=== PATIENT | male | born 1965 | race Caucasian/White ===

== ENCOUNTER 2021-10-25 03:09 | Emergency (ER) | payer SELFPAY ==
[2021-10-25] VITALS (13 sets, daily range): BP systolic 159–183; BP diastolic 95–137
[~2021-10-25] VITALS: Ht 190.5 cm; Wt 87.0 kg
[2021-10-25 03:46] LABS: HEMATOCRIT 38.4 % (39.0-50.0); HEMOGLOBIN 12.8 g/dl (14.0-18.0); MEAN CELL VOLUME 94.3 fL CALC (80.0-100.0); MEAN CORPUSCULAR HGB 31.4 pG CALC (26.0-32.0); MEAN CORPUSCULAR HGB CONC 33.3 g/dL CAL (32.0-36.0); NEUT# 5.23 thou/uL (1.82-7.42); RED BLOOD COUNT 4.07 mill/uL (4.70-6.10); RED CELL DISTRI WIDTH 13.7 % (11.5-15.5)
[2021-10-25 04:11] LABS: ALBUMIN 4.2 g/dL (3.2-5.0); ALKALINE PHOSPHATASE 66 u/l (38-126); ANION GAP 12 (6-22 (CALC)); BILIRUBIN, TOTAL 0.6 mg/dL (0.0-1.4); BUN 17 mg/dL (9-20); BUN/CREATININE RATIO 17 (12-20 (CALC)); CARBON DIOXIDE 23 mmol/l (22-30); CHLORIDE 108 mmol/l (95-108); CPK 1106 u/l (52-200); GFR > 60 ML/MIN (>=60 (CALC)); GFR FOR AFR.AMER. > 60 ML/MIN (>=60 (CALC)); MAGNESIUM 1.8 mg/dL (1.6-2.3); POTASSIUM 3.7 mmol/l (3.5-5.1); SGOT/AST 74 u/l (17-59); SODIUM 139 mmol/l (137-146); TOTAL PROTEIN 7.3 g/dL (6.3-8.2)
[2021-10-25] MEDS ORDERED: METOPROLOL TART50 MG PO (04:23)
[2021-10-25] MEDS ORDERED: SERTRALINE100 MG PO (04:23)
[2021-10-25 04:24] LABS: MYOGLOBIN 1420 ng/mL (0 - 121)
[2021-10-25] MEDS ORDERED: ALPRAZOLAM1 MG PO (04:24)
[2021-10-25] MEDS ORDERED: OMEPRAZOLE DR40 MG (04:25)
[2021-10-25] MEDS ORDERED: ZESTRIL5 M1 PO (04:26)
[2021-10-25] MEDS ORDERED: ALBUTEROL108 MCG/AC (04:27)
[2021-10-25] MEDS ORDERED: LYRICA150 MG PO (04:27)
[2021-10-25] MEDS ORDERED: MOTRIN800 MG PO (04:29)
[2021-10-25] MEDS ORDERED: TRIMETHOPRIM100 MG PO (04:29)
== END 2021-10-25 06:40 | disposition home or self-care (01) | DRG 999 ==
LOC: ED 03:09
PROVIDERS: Family Medicine
DX: T20.10XA Burn of first degree of head, face, and neck, unspecified site, initial encounter (principal); T31.30 Burns involving 30-39% of body surface with 0% to 9% third degree burns; M62.82 Rhabdomyolysis; T20.17XA Burn of first degree of neck, initial encounter; T21.11XA Burn of first degree of chest wall, initial encounter; T21.12XA Burn of first degree of abdominal wall, initial encounter; T22.132A Burn of first degree of left upper arm, initial encounter; T22.131A Burn of first degree of right upper arm, initial encounter; T24.112A Burn of first degree of left thigh, initial encounter; T24.111A Burn of first degree of right thigh, initial encounter; I10 Essential (primary) hypertension; J44.9 Chronic obstructive pulmonary disease, unspecified; F41.9 Anxiety disorder, unspecified; F32.A Depression, unspecified; F17.210 Nicotine dependence, cigarettes, uncomplicated; X00.0XXA Exposure to flames in uncontrolled fire in building or structure, initial encounter; Y92.028 Other place in mobile home as the place of occurrence of the external cause

== ENCOUNTER 2022-04-13 17:25 | Emergency (ER) | payer MEDICARE ==
[~2022-04-13] VITALS: Ht 190.5 cm; Wt 79.5 kg
[~2022-04-13 17:25] MED LIST: ALBUTEROL108 MCG/AC; ALPRAZOLAM1 MG PO; LYRICA150 MG PO; METOPROLOL TART50 MG PO; MOTRIN800 MG PO; OMEPRAZOLE DR40 MG; SERTRALINE100 MG PO; TRIMETHOPRIM100 MG PO; ZESTRIL5 M1 PO
[2022-04-13 18:19] LABS: HEMATOCRIT 39.7 % (39.0-50.0); HEMOGLOBIN 13.4 g/dl (14.0-18.0); IMMATURE GRANULOCYTES 0.2 % (0.0-5.0); MEAN CORPUSCULAR HGB 29.9 pG CALC (26.0-32.0); MEAN CORPUSCULAR HGB CONC 33.8 g/dL CAL (32.0-36.0); NEUT# 8.55 thou/uL (1.82-7.42); RED BLOOD COUNT 4.48 mill/uL (4.70-6.10); RED CELL DISTRI WIDTH 12.9 % (11.5-15.5)
[2022-04-13 18:20] LABS: MEAN CELL VOLUME 88.6 fL CALC (80.0-100.0)
[2022-04-13 18:29] LABS: ALBUMIN 4.3 g/dL (3.2-5.0); ANION GAP 15 (6-22 (CALC)); BUN 15 mg/dL (9-20); BUN/CREATININE RATIO 14 (12-20 (CALC)); CARBON DIOXIDE 25 mmol/l (22-30); CHLORIDE 100 mmol/l (95-108); GFR FOR AFR.AMER. > 60 ML/MIN (>=60 (CALC)); GFR OTHER RACES > 60 ML/MIN (>=60 (CALC)); POTASSIUM 4.3 mmol/l (3.5-5.1); SGOT/AST 127 u/l (17-59); SODIUM 135 mmol/l (137-146); TOTAL PROTEIN 8.1 g/dL (6.3-8.2)
[2022-04-13 18:30] LABS: ALKALINE PHOSPHATASE 139 u/l (38-126); BILIRUBIN, TOTAL 0.9 mg/dL (0.0-1.4)
[2022-04-13] MEDS ORDERED: ADVAIR DISK1 IN (19:46)
[2022-04-13] MEDS ORDERED: MUPIROCIN2 % EX ×2 (19:46→19:47)
[2022-04-13] MEDS ORDERED: VIBRAMYCIN100 M2 PO (19:46)
[2022-04-13] MEDS ORDERED: COMBIVENT RESPIMAT IN (19:46)
[2022-04-13 20:18] VITALS: BP 110/58
== END 2022-04-13 20:53 | disposition home or self-care (01) ==
LOC: ED 17:25
PROVIDERS: Nurse Practitioner
DX: L03.116 Cellulitis of left lower limb (principal); L03.115 Cellulitis of right lower limb; L03.114 Cellulitis of left upper limb; L03.113 Cellulitis of right upper limb; L01.00 Impetigo, unspecified; J44.9 Chronic obstructive pulmonary disease, unspecified; I10 Essential (primary) hypertension; F32.A Depression, unspecified; F41.9 Anxiety disorder, unspecified; F17.200 Nicotine dependence, unspecified, uncomplicated; B95.62 Methicillin resistant Staphylococcus aureus infection as the cause of diseases classified elsewhere

== ENCOUNTER 2022-11-17 16:48 | Emergency (ER) | payer MEDICARE ==
[~2022-11-17] VITALS: Ht 188 cm; Wt 77.0 kg
[~2022-11-17 16:48] MED LIST changes: +ADVAIR DISK1 IN; +COMBIVENT RESPIMAT IN; +MUPIROCIN2 % EX; +VIBRAMYCIN100 M2 PO
[2022-11-17 16:55] VITALS: BP 136/98
[2022-11-17 17:01] VITALS: BP 155/123
[2022-11-17] MEDS ORDERED: VIBRAMYCIN100 M2 PO (17:07)
[2022-11-17] MEDS ORDERED: PREDNISONE10 MG PO (17:07)
[2022-11-17 17:16] VITALS: BP 118/94
[2022-11-17 17:28] VITALS: BP 118/94
== END 2022-11-17 17:42 | disposition home or self-care (01) ==
LOC: ED 16:48
DX: L03.114 Cellulitis of left upper limb (principal); L03.113 Cellulitis of right upper limb; L03.116 Cellulitis of left lower limb; L03.115 Cellulitis of right lower limb; I10 Essential (primary) hypertension; J44.9 Chronic obstructive pulmonary disease, unspecified; F41.9 Anxiety disorder, unspecified; F32.A Depression, unspecified; F17.200 Nicotine dependence, unspecified, uncomplicated

== ENCOUNTER 2022-12-20 13:21 | Emergency (ER) | payer MEDICARE ==
[~2022-12-20] VITALS: Ht 188 cm; Wt 76.0 kg
[~2022-12-20 13:21] MED LIST changes: +PREDNISONE10 MG PO
[2022-12-20 13:31] VITALS: BP 159/118
[2022-12-20 13:46] VITALS: BP 159/105
[2022-12-20 14:00] VITALS: BP 151/108
[2022-12-20 14:15] VITALS: BP 140/102
[2022-12-20 14:24] VITALS: BP 140/102
== END 2022-12-20 14:32 | disposition home or self-care (01) ==
LOC: ED 13:21
PROC: 0HQ1XZZ Repair Face Skin, External Approach (ICD-10-PCS; principal; 2022-12-20)
DX: S01.111A Laceration without foreign body of right eyelid and periocular area, initial encounter (principal); I10 Essential (primary) hypertension; J44.9 Chronic obstructive pulmonary disease, unspecified; F41.9 Anxiety disorder, unspecified; F32.A Depression, unspecified; F17.200 Nicotine dependence, unspecified, uncomplicated; Y00.XXXA Assault by blunt object, initial encounter

== ENCOUNTER 2023-02-13 16:29 | Inpatient (IN) | payer MEDICARE ==
[~2023-02-13] VITALS: Ht 188 cm; Wt 72.4 kg
[2023-02-13] VITALS (11 sets, daily range): BP systolic 87–115; BP diastolic 58–75
[2023-02-13 17:17] LABS: BASO% 0.6 % (0-3); EOS% 4.3 % (0-8); HEMATOCRIT 43.1 % (39.0-50.0); HEMOGLOBIN 14.5 g/dl (14.0-18.0); IMMATURE GRANULOCYTES 0.1 % (0.0-5.0); LYMPH% 23.7 % (15-41); MEAN CELL VOLUME 88.7 fL CALC (80.0-100.0); MEAN CORPUSCULAR HGB 29.8 pG CALC (26.0-32.0); MEAN CORPUSCULAR HGB CONC 33.6 g/dL CAL (32.0-36.0); MONO% 8.4 % (2-13); NEUT# 4.34 thou/uL (1.82-7.42); NEUT% 62.9 % (42-76); RED BLOOD COUNT 4.86 mill/uL (4.70-6.10)
[2023-02-13 17:18] LABS: URINE BLOOD DIPSTICK Negative (NEGATIVE); URINE GLUCOSE - DIPSTICK Negative (NEGATIVE); URINE KETONE Negative (NEGATIVE); URINE LEUK ESTERASE Negative (NEGATIVE); URINE NITRITE - DIPSTICK Negative (Negative); URINE PH 5.5 (4.5-8.0); URINE PROTEIN - DIPSTICK 100 mg/dL (NEG-TRACE); URINE SPECIFIC GRAVITY >=1.030; URINE UROBILINOGEN - DIPSTICK 0.2 E.U./dL (0.2)
[2023-02-13 17:19] LABS: URINE COLOR Dark yellow
[2023-02-13] MEDS ORDERED: AMLODIPINE BESY10 MG PO (17:22)
[2023-02-13 17:29] LABS: ALBUMIN 4.7 g/dL (3.2-5.0); BILIRUBIN, TOTAL 0.7 mg/dL (0.2-1.3); POTASSIUM 4.7 mmol/l (3.5-5.1); TOTAL PROTEIN 8.9 g/dL (6.3-8.2)
[2023-02-13 17:30] LABS: CREATININE 3.1 mg/dL (0.7-1.3)
[2023-02-14] VITALS (7 sets, daily range): BP systolic 75–147; BP diastolic 38–87
[2023-02-14 06:06] LABS: MEAN CELL VOLUME 88.8 fL CALC (80.0-100.0); MEAN CORPUSCULAR HGB 30.5 pG CALC (26.0-32.0); MEAN CORPUSCULAR HGB CONC 34.4 g/dL CAL (32.0-36.0); RED CELL DISTRI WIDTH 13.1 % (11.5-15.5)
[2023-02-14 06:11] LABS: HEMATOCRIT 35.5 % (39.0-50.0); HEMOGLOBIN 12.2 g/dl (14.0-18.0)
[2023-02-14 06:25] LABS: CHOLESTEROL HDL RATIO 6.8 (<4.4 (CALC)); MAGNESIUM 1.9 mg/dL (1.6-2.3)
[2023-02-14 06:27] LABS: CREATININE 2.1 mg/dL (0.7-1.3); POTASSIUM 3.7 mmol/l (3.5-5.1)
[2023-02-15] VITALS: BP 140/85
[2023-02-15 04:40] VITALS: BP 148/94
[2023-02-15 05:25] LABS: HEMATOCRIT 32.9 % (39.0-50.0); HEMOGLOBIN 11.1 g/dl (14.0-18.0); MEAN CELL VOLUME 89.4 fL CALC (80.0-100.0); MEAN CORPUSCULAR HGB 30.2 pG CALC (26.0-32.0); MEAN CORPUSCULAR HGB CONC 33.7 g/dL CAL (32.0-36.0); RED BLOOD COUNT 3.68 mill/uL (4.70-6.10)
[2023-02-15 05:54] LABS: ALKALINE PHOSPHATASE 66 u/l (38-126); BUN 27 mg/dL (9-20); BUN/CREATININE RATIO 19 (12-20 (CALC)); CARBON DIOXIDE 21 mmol/l (22-30); CHLORIDE 110 mmol/l (95-108); CREATININE 1.4 mg/dL (0.7-1.3); GFR FOR AFR.AMER. > 60 ML/MIN (>=60 (CALC)); GFR OTHER RACES 52 ML/MIN (>=60 (CALC)); MAGNESIUM 1.7 mg/dL (1.6-2.3); SGOT/AST 27 u/l (17-59); SODIUM 136 mmol/l (137-146)
[2023-02-15 05:56] LABS: ALBUMIN 3.2 g/dL (3.2-5.0); ANION GAP 10 (6-22 (CALC)); BILIRUBIN, TOTAL 0.4 mg/dL (0.2-1.3); POTASSIUM 4.5 mmol/l (3.5-5.1); TOTAL PROTEIN 6.3 g/dL (6.3-8.2)
[2023-02-15 06:36] VITALS: BP 171/99
[2023-02-15 10:33] VITALS: BP 149/97
[2023-02-15] MEDS ORDERED: MIDODRINE HYDR2.5 MG PO (11:50)
== END 2023-02-15 14:12 | disposition home or self-care (01) | DRG 312 ==
LOC: ED 16:29 → MS2 18:11
PROVIDERS: Family Medicine; ADMIT Student in an Organized Health Care Education/Training Program; ATTEND Student in an Organized Health Care Education/Training Program
DX: I95.2 Hypotension due to drugs (principal); N17.9 Acute kidney failure, unspecified; T46.5X5A Adverse effect of other antihypertensive drugs, initial encounter; I10 Essential (primary) hypertension; J44.9 Chronic obstructive pulmonary disease, unspecified; R33.9 Retention of urine, unspecified; F32.A Depression, unspecified; F41.9 Anxiety disorder, unspecified; F17.200 Nicotine dependence, unspecified, uncomplicated